=== PATIENT | female | born 2000 ===

== ENCOUNTER 2020-12-17 17:04 | Inpatient (IN) | payer OTHER, MEDICAID ==
[2020-12-17] MEDS ORDERED: Tranexamic Acid 1,000 MG in Sodium Chloride 0.9% 100 ML IV PRN (17:06)
[2020-12-17] MEDS ORDERED: Nalbuphine 10 MG/1 ML Vial IVPUSH PRN (17:06)
[2020-12-17] MEDS ORDERED: Ondansetron 4 MG/2 ML SDV IVPUSH PRN (17:06)
[2020-12-17] MEDS ORDERED: Water For Irrigation,Sterile 1,000 ML Container IRR PRN (17:06)
[2020-12-17] MEDS ORDERED: Butorphanol 1 MG/ML SDV IVPUSH PRN (17:06)
[2020-12-17] MEDS ORDERED: Sodium Chloride 0.9% 10 ML SDV IV PRN (17:06)
[2020-12-17] MEDS ORDERED: Lidocaine 1% 50 ML MDV INJECT PRN (17:06)
[2020-12-17] MEDS ORDERED: Sodium Chloride 0.9% 10 ML Syringe FLUSH PRN (17:06)
[2020-12-17] MEDS ORDERED: Sodium Chloride 0.9% 2.5 ML Syringe FLUSH PRN (17:06)
[2020-12-17] MEDS ORDERED: Carboprost Tromethamine 250 MCG/1 ML Amp IM PRN (17:06)
[2020-12-17] MEDS ORDERED: Methylergonovine 0.2 MG/1 ML Amp IM PRN (17:06)
[2020-12-17] MEDS ORDERED: Misoprostol 200 MCG Tab PO PRN (17:06)
[2020-12-17] MEDS ORDERED: Terbutaline 1 MG/ML SDV SUBCUT PRN (17:15)
[2020-12-17] MEDS ORDERED: Dinoprostone 10 MG Insert VAG PRN (17:15)
[2020-12-17] MEDS ORDERED: Oxytocin/0.9 % Sodium Chloride 30 UNIT/500 ML BAG IV SCH ×2 (17:15)
[2020-12-17] MEDS: Lactated Ringers 1,000 ML IV SCH (17:57)
[2020-12-17] MEDS ORDERED: Oxytocin/Lactated Ringers 30 UNIT/500 ML BAG IV SCH (18:30)
[2020-12-17 20:05] LABS: BLOOD UREA NITROGEN,BUN 8 mg/dL (7.0-18.0)
[2020-12-18] MEDS ORDERED: Oxytocin/0.9 % Sodium Chloride 30 UNIT/500 ML BAG IV SCH (10:00)
[2020-12-18] MEDS: Lactated Ringers 1,000 ML IV SCH (10:15)
[2020-12-18] MEDS ORDERED: Lanolin 100% Cream 7 GM Tube TOP PRN (14:37)
[2020-12-18] MEDS ORDERED: Witch Hazel Medicated Pads 40/Jar TOP PRN (14:37)
[2020-12-18] MEDS ORDERED: Bisacodyl 10 MG Supp RECTAL PRN (14:37)
[2020-12-18] MEDS ORDERED: oxyCODONE 5 MG Tab PO PRN (14:37)
[2020-12-18] MEDS ORDERED: Docusate Sodium 100 MG Cap PO PRN (14:37)
[2020-12-18] MEDS ORDERED: Benzocaine/Menthol 20%-0.5% Spray 78 GM Cannister TOP PRN (14:37)
[2020-12-18] MEDS ORDERED: Acetaminophen 500 MG Tab PO PRN ×2 (14:37)
[2020-12-18] MEDS ORDERED: Ibuprofen 400 MG Tab PO PRN (14:37)
[2020-12-18] MEDS ORDERED: Ibuprofen 800 MG Tab PO PRN (14:37)
--- NOTE | 2020-12-18 14:46 | PCM.DEL ---
L & D Note - General Info Date of Service: 12/18/20 Mother's Due Date: 12/24/20 - Delivery Note Labor: Induced by Oxytocin Cervical Ripening Method: Prostaglandin E2 Delivery Outcome: Livebirth Delivery Method: Spontaneous Vaginal Delivery-Single Presentation: Right Occiput Anterior (JAVIER) Nuchal Cord: None Anesthesia Type: Local Anesthetic: Lidocaine (Xylocaine) 1% Plain Local Anesthetic Volume: 5cc Amniotic Fluid Description: Clear Episiotomy Type: None Laceration: Labial (bilateral) Suture type: Chromic Suture size: 3-0 Placenta: Intact, Spontaneous Cord: 3 Vessels Estimated Blood Loss: 400 : Bulb Syringe Score 1 min: 8 Score 5 min: 9 Delivery Comments (Free Text/Narrative):: Dictation #[id number] - General Info Date of Service: 12/18/20 - Patient Data Weight - Most Recent: 114 lb Lab Results Last 24 Hours: Laboratory Results - last 24 hr 12/17/20 12/17/20 12/17/20 Range/Units 17:44 17:50 17:50 WBC 10.63 (4.0-11.0) K/uL RBC 4.31 (4.30-5.90) M/uL Hgb 11.9 L (12.0-16.0) g/dL Hct 35.5 L (36.0-46.0) % MCV 82.4 (80.0-98.0) fL MCH 27.6 (27.0-32.0) pg MCHC 33.5 (31.0-37.0) g/dL RDW Std Deviation 40.0 (28.0-62.0) fl RDW Coeff of Armand 13 (11.0-15.0) % Plt Count 312 (150-400) K/uL MPV 10.10 (7.40-12.00) fL Nucleated RBC % 0.0 /100WBC Nucleated RBCs # 0 K/uL BUN 8 (7.0-18.0) mg/dL Creatinine 0.8 (0.6-1.0) mg/dL Est Cr Clr Drug Dosing 88.72 mL/min Estimated GFR (MDRD) > 60.0 ml/min Uric Acid 5.4 (2.6-7.2) mg/dL AST 18 (15-37) IU/L ALT 18 (14-63) IU/L Lactate Dehydrogenase 171 (81-234) U/L Urine Color Urine Appearance Urine pH (5.0-8.0) Ur Specific [place] (1.001-1.035) Urine Protein (NEGATIVE) mg/dL Urine Glucose (UA) (NEGATIVE) mg/dL Urine Ketones (NEGATIVE) mg/dL Urine Occult Blood (NEGATIVE) Urine Nitrite (NEGATIVE) Urine Bilirubin (NEGATIVE) Urine Urobilinogen (<2.0) EU/dL Ur Leukocyte Esterase (NEGATIVE) Urine RBC (0-2/HPF) Urine WBC (0-5/HPF) Ur Epithelial Cells (NONE-FEW) Urine Bacteria (NEGATIVE) Ur Random Creatinine mg/dL U Random Total Protein (<11.9) mg/dL Protein/Creatinin Ratio Blood Type B POSITIVE Antibody Screen NEGATIVE 12/17/20 12/17/20 Range/Units 19:57 19:57 WBC (4.0-11.0) K/uL RBC (4.30-5.90) M/uL Hgb (12.0-16.0) g/dL Hct (36.0-46.0) % MCV (80.0-98.0) fL MCH (27.0-32.0) pg MCHC (31.0-37.0) g/dL RDW Std Deviation (28.0-62.0) fl RDW Coeff of Armand (11.0-15.0) % Plt Count (150-400) K/uL MPV (7.40-12.00) fL Nucleated RBC % /100WBC Nucleated RBCs # K/uL BUN (7.0-18.0) mg/dL Creatinine (0.6-1.0) mg/dL Est Cr Clr Drug Dosing mL/min Estimated GFR (MDRD) ml/min Uric Acid (2.6-7.2) mg/dL AST (15-37) IU/L ALT (14-63) IU/L Lactate Dehydrogenase (81-234) U/L Urine Color YELLOW Urine Appearance CLEAR Urine pH 6.0 (5.0-8.0) Ur Specific [place] 1.015 (1.001-1.035) Urine Protein NEGATIVE (NEGATIVE) mg/dL Urine Glucose (UA) NEGATIVE (NEGATIVE) mg/dL Urine Ketones NEGATIVE (NEGATIVE) mg/dL Urine Occult Blood NEGATIVE (NEGATIVE) Urine Nitrite NEGATIVE (NEGATIVE) Urine Bilirubin NEGATIVE (NEGATIVE) Urine Urobilinogen 0.2 (<2.0) EU/dL Ur Leukocyte Esterase NEGATIVE (NEGATIVE) Urine RBC 0-5 (0-2/HPF) Urine WBC 0-5 (0-5/HPF) Ur Epithelial Cells OCCASIONAL (NONE-FEW) Urine Bacteria FEW (NEGATIVE) Ur Random Creatinine 52.7 mg/dL U Random Total Protein < 6.0 (<11.9) mg/dL Protein/Creatinin Ratio TNP Blood Type Antibody Screen Med Orders - Current: Current Medications Butorphanol Tartrate (Butorphanol 1 Mg/Ml Sdv) 1 mg IVPUSH Q1H PRN PRN Reason: Pain (severe 7-10) Carboprost Tromethamine (Carboprost Tromethamine 250 Mcg/1 Ml Amp) 250 mcg IM ASDIRECTED PRN PRN Reason: Post Hemorrhage Dinoprostone (Dinoprostone 10 Mg Insert) 10 mg VAG ONETIME PRN PRN Reason: Cervical Ripening Last Admin: 12/17/20 21:05 Dose: 10 mg Documented by: Oxytocin/Sodium Chloride (Oxytocin 30 Unit/500 Ml-Ns) 30 unit in 500 mls @ 999 mls/hr IV TITRATE LISET Tranexamic Acid 1,000 mg/ (Sodium Chloride) 110 mls @ 660 mls/hr IV ONETIME PRN PRN Reason: Bleeding Lactated Ringer's (Ringers, Lactated) 1,000 mls @ 150 mls/hr IV ASDIRECTED LISET Last Admin: 12/18/20 10:15 Dose: 150 mls/hr Documented by: Oxytocin/Sodium Chloride (Oxytocin 30 Unit/500 Ml-Ns) 30 unit in 500 mls @ 2 mls/hr IV TITRATE LISET; Protocol Last Infusion: 12/18/20 11:08 Dose: 4 munits/min, 4 mls/hr Documented by: Lidocaine HCl (Lidocaine 1% 50 Ml Mdv) 50 ml INJECT ONETIME PRN PRN Reason: Laceration repair Last Admin: 12/18/20 14:10 Dose: 50 ml Documented by: Methylergonovine Maleate (Methylergonovine 0.2 Mg/1 Ml Amp) 0.2 mg IM ASDIRECTED PRN PRN Reason: Post Hemorrhage Misoprostol (Misoprostol 200 Mcg Tab) 200 mcg PO ONETIME PRN PRN Reason: Post Hemorrhage Nalbuphine HCl (Nalbuphine 10 Mg/1 Ml Vial) 10 mg IVPUSH Q1H PRN PRN Reason: Pain (severe 7-10) Ondansetron HCl (Ondansetron 4 Mg/2 Ml Sdv) 4 mg IVPUSH Q6H PRN PRN Reason: Nausea/Vomiting Sodium Chloride (Sodium Chloride 0.9% 10 Ml Syringe) 10 ml FLUSH ASDIRECTED PRN PRN Reason: Keep Vein Open Sodium Chloride (Sodium Chloride 0.9% 2.5 Ml Syringe) 2.5 ml FLUSH ASDIRECTED PRN PRN Reason: Keep Vein Open Sodium Chloride (Sodium Chloride 0.9% 10 Ml Sdv) 10 ml IV ASDIRECTED PRN PRN Reason: IV Use Sterile Water (Water For Irrigation,Sterile 1,000 Ml Container) 1,000 ml IRR ASDIRECTED PRN PRN Reason: delivery Terbutaline Sulfate (Terbutaline 1 Mg/Ml Sdv) 0.25 mg SUBCUT ASDIRECTED PRN PRN Reason: Tacysystole Discontinued Medications Oxytocin/Sodium Chloride (Oxytocin 30 Unit/500 Ml-Ns) 30 unit in 500 mls @ 2 mls/hr IV TITRATE LISET; Protocol - Problem List Review Problem List Initiated/Reviewed/Updated: Yes - My Orders Last 24 Hours: My Active Orders 12/17/20 Dinner Clear Liquid Diet [DIET] 12/17/20 17:06 Patient Status [ADT] Routine Heart Tones [RC] CONTINUOUS Non Stress Test [RC] PER UNIT ROUTINE May Shower [RC] ASDIRECTED Notify Provider [RC] PRN Up ad Saida [RC] ASDIRECTED Vaginal Exam [RC] PRN Vital Signs [RC] PER UNIT ROUTINE Butorphanol [Stadol] 1 mg IVPUSH Q1H PRN Carboprost Tromethamine [Hemabate DS] 250 mcg IM ASDIRECTED PRN Lidocaine 1% [Xylocaine 1%] 50 ml INJECT ONETIME PRN Methylergonovine [Methergine] 0.2 mg IM ASDIRECTED PRN Nalbuphine [Nubain] 10 mg IVPUSH Q1H PRN Ondansetron [Zofran] 4 mg IVPUSH Q6H PRN Sodium Chloride 0.9% [Normal Saline] 10 ml IV ASDIRECTED PRN Sodium Chloride 0.9% [Saline Flush] 10 ml FLUSH ASDIRECTED PRN Sodium Chloride 0.9% [Saline Flush] 2.5 ml FLUSH ASDIRECTED PRN Tranexamic Acid [Cyklokapron] 1,000 mg Sodium Chloride 0.9% [Normal Saline] 100 ml IV ONETIME Water For Irrigation,Sterile [Sterile Water for Irrigation] 1,000 ml IRR ASDIRECTED PRN miSOPROStoL [Cytotec] 200 mcg PO ONETIME PRN Scalp Electrode [WOMSER] Per Unit Routine Peripheral IV Insertion Adult [OM.PC] Routine Resuscitation Status Routine 12/17/20 17:15 Bedrest Bathroom Privileges [RC] ASDIRECTED Communication Order [RC] ASDIRECTED Communication Order [RC] ASDIRECTED Communication Order [RC] ASDIRECTED Notify Provider [RC] PRN Notify Provider [RC] PRN Notify Provider [RC] STAT Oxygen Therapy [RC] ASDIRECTED Vaginal Exam [RC] PRN Vital Signs [RC] PER UNIT ROUTINE Dinoprostone [Cervidil] 10 mg VAG ONETIME PRN Lactated Ringers [Ringers, Lactated] 1,000 ml IV ASDIRECTED Oxytocin/0.9 % Sodium Chloride [Oxytocin 30 Unit/500 ML-NS] 30 unit in 500 ml IV TITRATE Terbutaline [Brethine] 0.25 mg SUBCUT ASDIRECTED PRN Medication Administration Instruction [OM.PC] Q3H 12/17/20 17:19 CORONAVIRUS COVID-19 ERWIN [MOLEC] Stat 12/17/20 17:50 RPR (SYPHILIS SERO) W/ RFLX [REF] Stat 12/18/20 10:00 Oxytocin/0.9 % Sodium Chloride [Oxytocin 30 Unit/500 ML-NS] 30 unit in 500 ml IV TITRATE 12/18/20 14:37 Patient Status [ADT] Routine May Shower [RC] ASDIRECTED Up ad Saida [RC] ASDIRECTED Vital Signs [RC] PER UNIT ROUTINE Acetaminophen [Tylenol Extra Strength] 1,000 mg PO Q4H PRN Acetaminophen [Tylenol Extra Strength] 500 mg PO Q4H PRN Benzocaine/Menthol [Dermoplast Pain Relief 20%-0.5% [place]] 78 gm TOP ASDIRECTED PRN Docusate Sodium [Colace] 100 mg PO Q12H PRN Ibuprofen [Motrin] 400 mg PO Q4H PRN Ibuprofen [Motrin] 800 mg PO Q6H PRN Lanolin [Lansinoh HPA] See Dose Instructions TOP ASDIRECTED PRN bisacodyL [Dulcolax] 10 mg RECTAL ONETIME PRN oxyCODONE 5 mg PO Q2H PRN witch Jose Angel [Tucks] 1 pad TOP ASDIRECTED PRN Assess Lochia [WOMSER] Per Unit Routine Assess Uterine Involution [WOMSER] Per Unit Routine Peripheral IV Discontinue [OM.PC] Routine 12/19/20 05:11 HEMOGLOBIN/HEMATOCRIT,HH [HEME] Timed - Assessment Assessment:: 20 year old G1 now P1 s/p with growth restriction and gestational hypertension - Plan Plan:: Routine cares * Rh positive, rubella immune, GBS negative * PO pain medications ordered PRN * Regular diet as tolerated * Encourage ambulation and fluid intake when able * , nursing assistance PRN Gestational hypertension * BPs normotensive to mild range during labor * Preeclampsia labs within normal limits * Denies preeclampsia symptoms * Will continue to monitor closely Dispo: stable. Admit to floor.
--- NOTE | 2020-12-18 15:37 | OR ---
SURGEON: MARGIE WHITMORE MD DATE OF PROCEDURE: 12/18/2020 PREOPERATIVE DIAGNOSES: 1. Term intrauterine at 39 weeks 1 day gestation. 2. growth restriction. 3. Gestational hypertension. POSTOPERATIVE DIAGNOSES: 1. Term intrauterine at 39 weeks 1 day gestation. 2. growth restriction. 3. Gestational hypertension. PROCEDURES: 1. Spontaneous vaginal delivery. 2. Repair of bilateral labial laceration. PRIMARY SURGEON: Margie Whitmore MD, present for the entire procedure. ANESTHESIA: Local anesthetic. FINDINGS: Viable female . Cephalic presentation. scores of 8 and 9. Weight 2860 g. EBL 400 mL. Placenta delivered intact. INDICATION FOR PROCEDURE: The patient is a 20-year-old, 1, para 1, who presented to Labor and Delivery on the evening of 12/17/2020 at 39 weeks 0 days for induction of labor due to growth restriction due to abdominal circumference measuring less than the 10th percentile. She had normal testing up until this point. Upon admission to Labor and Delivery, Cervidil was placed vaginally and the patient was able to rest overnight. On the morning of 12/18/2020, the Cervidil was removed. Cervical evaluation revealed the cervix dilated to 3 cm, 70% effaced, and -2 station. Cephalic presentation. Membranes intact. Pitocin initiated at that point in time. Labor progressed spontaneously. Artificial rupture of membranes was performed at approximately 1300 with moderate amount of clear fluid noted. The patient noted to be 5 cm, 80% effaced, -2 station at that point in time. At approximately 1345, I was notified that the patient was completely dilated, was without an epidural, and felt the urge to push, and presented to Labor and Delivery shortly thereafter. DESCRIPTION OF PROCEDURE: The patient was placed into lithotomy position and pushed with contractions for approximately 5 minutes with good descent. The head delivered in occiput anterior position, restitute ROT. Anterior shoulder delivered easily. No nuchal cord was noted. Posterior shoulder and remaining body were then delivered. The baby was placed on maternal abdomen and was evaluated by waiting nursing staff. Baby was pink, crying vigorously, and moving all extremities immediately after the delivery. The umbilical cord was clamped and cut after 60 seconds and no longer pulsating. Arterial, venous, and cord blood gases were then obtained. Placenta was then expressed intact and sent to Pathology due to diagnosis of growth restriction. Examination of the vaginal guthrie and perineum was then performed. Superficial bilateral labial lacerations were then noted and repaired in a running fashion with 3-0 chromic. Fundal massage was then performed and a large blood clot was then expelled. Fundal massage was continued and fundus noted to be firm. Instructed nursing staff to start second bag of Pitocin after completion of the first one due to large blood clot and lower uterine segment atony which responded well to massage. EBL 400 mL. The patient tolerated the procedure well. Blood pressure was normotensive just prior to delivery. We will continue to monitor closely. She was given care instructions. TK / SIDNEY /[id number]
[2020-12-18] MEDS ORDERED: Witch Hazel Medicated Pads 40/Jar TOP ONE (16:12)
[2020-12-18] MEDS ORDERED: Benzocaine/Menthol 20%-0.5% Spray 78 GM Cannister ONE (16:12)
--- NOTE | 2020-12-19 08:15 | PCM.PNPP ---
- General Info Date of Service: 12/19/20 Admission Dx/Problem (Free Text): Induction of labor growth restriction Gestational hypertension Subjective Update: Walking about room during rounds. Pain well controlled. Lochia decreasing. Ambulating and voiding without difficulty. , going well. Denies headache, visual changes or RUQ pain. - General Info Date of Service: 12/19/20 - Patient Data Vital Signs - Most Recent: Last Vital Signs Temp 97.5 F 12/19/20 07:40 Pulse 64 12/19/20 07:40 Resp 15 12/19/20 07:40 BP 133/84 12/19/20 07:40 Pulse Ox 98 12/19/20 07:40 Weight - Most Recent: 114 lb Lab Results - Last 24 Hours: Laboratory Results - last 24 hr 12/19/20 Range/Units 05:09 Hgb 9.8 L (12.0-16.0) g/dL Hct 29.9 L (36.0-46.0) % Med Orders - Current: Current Medications Acetaminophen (Acetaminophen 500 Mg Tab) 500 mg PO Q4H PRN PRN Reason: Pain (mild 1-3) Acetaminophen (Acetaminophen 500 Mg Tab) 1,000 mg PO Q4H PRN PRN Reason: Pain (mild 1-3) Last Admin: 12/18/20 16:50 Dose: 1,000 mg Documented by: Benzocaine/Menthol (Benzocaine/Menthol 20%-0.5% [place] 78 Gm Cannister) 78 gm TOP ASDIRECTED PRN PRN Reason: Perineal Comfort Measure Last Admin: 12/18/20 16:15 Dose: 78 gm Documented by: Bisacodyl (Bisacodyl 10 Mg Supp) 10 mg RECTAL ONETIME PRN PRN Reason: Constipation Butorphanol Tartrate (Butorphanol 1 Mg/Ml Sdv) 1 mg IVPUSH Q1H PRN PRN Reason: Pain (severe 7-10) Carboprost Tromethamine (Carboprost Tromethamine 250 Mcg/1 Ml Amp) 250 mcg IM ASDIRECTED PRN PRN Reason: Post Hemorrhage Dinoprostone (Dinoprostone 10 Mg Insert) 10 mg VAG ONETIME PRN PRN Reason: Cervical Ripening Last Admin: 12/17/20 21:05 Dose: 10 mg Documented by: Docusate Sodium (Docusate Sodium 100 Mg Cap) 100 mg PO Q12H PRN PRN Reason: Constipation Emollient Ointment (Lanolin 100% Cream 7 Gm Tube) 0 gm TOP ASDIRECTED PRN PRN Reason: Sore Nipples Oxytocin/Sodium Chloride (Oxytocin 30 Unit/500 Ml-Ns) 30 unit in 500 mls @ 999 mls/hr IV TITRATE [facility] Last Admin: 12/18/20 14:35 Dose: 999 mls/hr Documented by: Tranexamic Acid 1,000 mg/ (Sodium Chloride) 110 mls @ 660 mls/hr IV ONETIME PRN PRN Reason: Bleeding Lactated Ringer's (Ringers, Lactated) 1,000 mls @ 150 mls/hr IV ASDIRECTED LISET Last Admin: 12/18/20 10:15 Dose: 150 mls/hr Documented by: Oxytocin/Sodium Chloride (Oxytocin 30 Unit/500 Ml-Ns) 30 unit in 500 mls @ 2 mls/hr IV TITRATE [facility]; Protocol Last Infusion: 12/18/20 14:03 Dose: 999 munits/min, 999 mls/hr Documented by: Ibuprofen (Ibuprofen 400 Mg Tab) 400 mg PO Q4H PRN PRN Reason: Pain (mild 1-3) Ibuprofen (Ibuprofen 800 Mg Tab) 800 mg PO Q6H PRN PRN Reason: Pain (mild 1-3) Last Admin: 12/18/20 22:20 Dose: 800 mg Documented by: Lidocaine HCl (Lidocaine 1% 50 Ml Mdv) 50 ml INJECT ONETIME PRN PRN Reason: Laceration repair Last Admin: 12/18/20 14:10 Dose: 50 ml Documented by: Methylergonovine Maleate (Methylergonovine 0.2 Mg/1 Ml Amp) 0.2 mg IM ASDIRECTED PRN PRN Reason: Post Hemorrhage Misoprostol (Misoprostol 200 Mcg Tab) 200 mcg PO ONETIME PRN PRN Reason: Post Hemorrhage Nalbuphine HCl (Nalbuphine 10 Mg/1 Ml Vial) 10 mg IVPUSH Q1H PRN PRN Reason: Pain (severe 7-10) Ondansetron HCl (Ondansetron 4 Mg/2 Ml Sdv) 4 mg IVPUSH Q6H PRN PRN Reason: Nausea/Vomiting Oxycodone HCl (Oxycodone 5 Mg Tab) 5 mg PO Q2H PRN PRN Reason: Pain (severe 7-10) Sodium Chloride (Sodium Chloride 0.9% 10 Ml Syringe) 10 ml FLUSH ASDIRECTED PRN PRN Reason: Keep Vein Open Sodium Chloride (Sodium Chloride 0.9% 2.5 Ml Syringe) 2.5 ml FLUSH ASDIRECTED PRN PRN Reason: Keep Vein Open Sodium Chloride (Sodium Chloride 0.9% 10 Ml Sdv) 10 ml IV ASDIRECTED PRN PRN Reason: IV Use Sterile Water (Water For Irrigation,Sterile 1,000 Ml Container) 1,000 ml IRR ASDIRECTED PRN PRN Reason: delivery Terbutaline Sulfate (Terbutaline 1 Mg/Ml Sdv) 0.25 mg SUBCUT ASDIRECTED PRN PRN Reason: Tacysystole Witch Jose Angel (Witch Jose Angel Medicated Pads 40/Jar) 1 pad TOP ASDIRECTED PRN PRN Reason: comfort care Last Admin: 12/18/20 16:15 Dose: 1 pad Documented by: Discontinued Medications Benzocaine/Menthol (Benzocaine/Menthol 20%-0.5% [place] 78 Gm Cannister) Confirm Administered Dose 78 gm .ROUTE .STK-MED ONE Stop: 12/18/20 16:13 Last Admin: 12/18/20 17:16 Dose: Not Given Documented by: Oxytocin/Sodium Chloride (Oxytocin 30 Unit/500 Ml-Ns) 30 unit in 500 mls @ 2 mls/hr IV TITRATE LISET; Protocol Witch Jose Angel (Witch Jose Angel Medicated Pads 40/Jar) Confirm Administered Dose 1 pad TOP .STK-MED ONE Stop: 12/18/20 16:13 Last Admin: 12/18/20 17:16 Dose: Not Given Documented by: - Infant Interaction Disposition, : [place] in Room with Family Infant Feeding: Breastfed Infant; Nursed Well Support Person: Mother, Significant Other - Recovery Exam Fundal Tone: Firm Fundal Level: 1 Fingerbreadths Below Umbilicus Fundal Placement: Midline Lochia Amount: Scant, Small Lochia Color: Rubra/Red Perineum Description: Other (see below) Other Perinuem Description: bilateral labial laceration Episiotomy/Laceration: Approximated Bladder Status: Voiding Urinary Elimination: Voided - Exam General: Alert Lungs: Normal Respiratory Effort Cardiovascular: Regular Rate GI/Abdominal Exam: Soft, Non-Tender Extremities: Normal Range of Motion, Non-Tender, No Pedal Edema Skin: Warm, Dry, Intact Neurological: No New Focal Deficit Psy/Mental Status: Normal Mood - Problem List Review Problem List Initiated/Reviewed/Updated: Yes - My Orders Last 24 Hours: My Active Orders 12/18/20 10:00 Oxytocin/0.9 % Sodium Chloride [Oxytocin 30 Unit/500 ML-NS] 30 unit in 500 ml IV TITRATE 12/18/20 Lunch Regular Diet [DIET] 12/18/20 14:37 Patient Status [ADT] Routine May Shower [RC] ASDIRECTED Up ad Saida [RC] ASDIRECTED Vital Signs [RC] PER UNIT ROUTINE Acetaminophen [Tylenol Extra Strength] 1,000 mg PO Q4H PRN Acetaminophen [Tylenol Extra Strength] 500 mg PO Q4H PRN Benzocaine/Menthol [Dermoplast Pain Relief 20%-0.5% [place]] 78 gm TOP ASDIRECTED PRN Docusate Sodium [Colace] 100 mg PO Q12H PRN Ibuprofen [Motrin] 400 mg PO Q4H PRN Ibuprofen [Motrin] 800 mg PO Q6H PRN Lanolin [Lansinoh HPA] See Dose Instructions TOP ASDIRECTED PRN bisacodyL [Dulcolax] 10 mg RECTAL ONETIME PRN oxyCODONE 5 mg PO Q2H PRN witch Jose Angel [Tucks] 1 pad TOP ASDIRECTED PRN Assess Lochia [WOMSER] Per Unit Routine Assess Uterine Involution [WOMSER] Per Unit Routine Peripheral IV Discontinue [OM.PC] Routine - Assessment Assessment:: 20 year old PPD1 s/p with growth restriction and gestational hypertension - Plan Plan:: Routine cares * Rh positive, rubella immune, GBS negative * PO pain medications ordered PRN * Regular diet as tolerated * Encourage ambulation and fluid intake when able * , nursing assistance PRN Gestational hypertension * BPs normotensive to mild range during labor * Preeclampsia labs within normal limits * Denies preeclampsia symptoms * Will continue to monitor closely Dispo: stable. Anticipate discharge later today pending maternal/ status. Discharge precautions reviewed. Patient to return to clinic in 4 weeks for PPV.
== END 2020-12-19 16:49 | disposition home or self-care (01) | DRG 807 ==
LOC: MW.OBCHECK 17:04 → MW.OB 17:06 → OBSVTOIN 12-18 14:37 → MW.OB 12-18 16:55
PROVIDERS: ADMIT Obstetrics & Gynecology; ATTEND Obstetrics & Gynecology
PROC: 10E0XZZ Delivery of Products of Conception, External Approach (ICD-10-PCS; principal; 2020-12-18)
PROC: 3E033VJ Introduction of Other Hormone into Peripheral Vein, Percutaneous Approach (ICD-10-PCS; 2020-12-18)
PROC: 10907ZC Drainage of Amniotic Fluid, Therapeutic from Products of Conception, Via Natural or Artificial Opening (ICD-10-PCS; 2020-12-18)
PROC: 4A1HXCZ Monitoring of Products of Conception, Cardiac Rate, External Approach (ICD-10-PCS; 2020-12-18)
DX: O36.5930 Maternal care for other known or suspected poor fetal growth, third trimester, not applicable or unspecified (principal); Z37.0 Single live birth; Z3A.37 37 weeks gestation of pregnancy; O13.4 Gestational [pregnancy-induced] hypertension without significant proteinuria, complicating childbirth
CPT/HCPCS: 36415; 59025; 59409; 81001; 82565; 82570; 83615; 84156; 84450; 84460; 84520; 84550; 85014; 85018; 85027; 86592; 86850; 86900; 86901; A9270-GY; J2001; J2590; J7120